=== PATIENT | female | born 1985 | race Caucasian/White ===

== ENCOUNTER 2018-08-14 17:34 | Emergency (ER) | payer SELFPAY ==
[2018-08-14 17:35] VITALS: BP 154/102; PULSE 88; RESP 16; TEMP 36.7; O2SAT 100; BMI 25.5
--- NOTE | 2018-08-14 17:40 | ED.RN ---
Pt brought in by Kalin viramontes from a counseling center for [facility]. in [facility]. Pt states she is from [place] and her friends dropped her off in [facility] and left her there to get help Pt was verbalizing wanting to hang herself so she was sent here for evaluation and placement. Pt very cooperative but states she has been having increasing SI for a year. Was started on Wellbutrin a week ago. Pt noted to be to be laughing very inappropriately. Suicide precautions initiated at this time. Sitter at bedside. Pt was placed in a gown, and blood and urine specimens obtained. Pt informed of mental health process, denies questions or needs.
--- NOTE | 2018-08-14 17:49 | ED.VIS.GEN ---
History of Present Illness Chief Complaint: Suicidal Detail of Chief Complaint: Sent to ER from counseling center because of specific plan Informant: Patient Onset: Month(s) - Patient states she has had thoughts of hanging herself daily for greater than a year. Context: Sudden Onset Timing: Intermittent - Depends if she is having a good day or not. Quality: Depression, anxiety, burden to others Location: Not applicable Current Severity: Mild Maximum Severity: Moderate Worsened by: Not having a good day or perceives she is a burden to others Relieved by: Nothing in particular Associated Symptoms: Anxiousness, romeo results of hanging herself. Last time past Tuesday.. Narrative: Patient is a 33-year-old [facility] woman who was brought from [place] to [place] by friends to undergo outpatient counseling. She states she relocated to [place] approximately 4 weeks ago. Patient states she thinks of hanging herself daily. 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 She has purchased all several times in 7 pain herself. She reports she has diagnosis of depression anxiety and mood disorder. She states he was not told she has a personality disorder. She is single. She lives alone until relocation. She denies smoking or drinking. She denies drug use. She states she is never been . Prior similar symptoms: Yes Recent Illness/Hospitalization: No - Past Medical History (1) History of depression and anxiety Status: Acute Past Medical History - Allergies and Home Meds Allergies/Adverse Reactions: Allergies Sulfa (Sulfonamide Antibiotics) Allergy (Verified 08/14/18 17:47) Vomiting Primary Care Physician: [facility] Doctor,Out of [NON-STAFF] - Prior records reviewed: No Past Medical History: - - Sy's disease Surgical History: no surgical history Lives: Alone Smoking Status: Never smoker Alcohol: None Drugs: None Review of Systems General: Denies: Chills, Fever, Malaise, Sweats, Weight loss Eyes: Denies: Visual changes - bilaterally, Blurred Vision - bilaterally, Diplopia ENT: Denies: Rhinorrhea, Sore throat Cardiovascular: Denies: Chest pain, Palpitations Respiratory: Denies: Dyspnea, Cough, Dyspnea on exertion Gastrointestinal: Denies: Abdominal pain, Nausea, Vomiting, Diarrhea, Melena, Hematochezia Genitourinary: Denies: Dysuria, Hematuria, Frequency Musculoskeletal: Denies: Back pain, Extremity Pain Skin: Denies: Rash, Wounds Neurological: Denies: Headache, Weakness, Numbness Psych: Reports: Depression, Anxiety, Suicidal thoughts Endocrine: Denies: Polyuria, Polydipsia, Heat intolerance, Cold intolerance Physical Exam Vital Signs/Narrative: Vital Signs Temp Pulse Resp BP Pulse Ox 08/14/18 17:35 98.1 F 88 16 154/102 H 100 Inital Vital Signs reviewed: Yes General: Well nourished, Well developed, No Acute Distress Head: Normocephalic, Atraumatic Eyes: Perrl, EOMI. Negative for: Pale conjunctiva, Scleral icterus, - ENT: Moist mucous membranes, No rhinorrhea, TM's clear Neck: Supple, Nontender, No lymphadenopathy, No JVD, - Cardiovascular: Regular rate, Regular rhythm, No murmurs, Normal S1, Normal S2 Respiratory: No distress, CTA bilaterally, Chest nontender Abdomen: Soft, Nontender, Nondistended, Normal bowel sounds, No masses Extremities: Nontender, No edema Skin: Normal color, No rash. Negative for: Cyanosis, Jaundice Neurological: Alert, Oriented x3, Cranial nerves II-XII grossly intact, Normal Strength, Normal Sensation, Normal DTR Psychological: Depressed - Patient voices thoughts of hanging herself. She states she has thoughts of hanging herself daily. She has never been hospitalized for psychiatric reasons. She has never attempted to harm herself. She states she has burned herself to release the tension and to prevent herself from hanging herself. Diagnostic/Tx/Re-eval - Medical Decision Making Since patient reports greater than 1 year of suicidal thoughts will have case management see patient and arrange for appropriate intense outpatient therapy. Because history of anemia CBC was obtained. Because history of thyroid disease at TSH level was obtained. Kayla from case management saw patient. She agreed not an easy case. She discussed case with lysis bilingual social worker from crisis center. She believes she needs to be hospitalized. Therefore, urine for drugs of abuse, alcohol level and test was added to prior orders. Melina from the counseling center saw patient. She is in agreement with me that patient does not require admission to hospital. When she contacted the facility she came from they refused to take her back. Will contact Kayla from case management to help with disposition of this patient. Patient charge from facility patient was transferred from requested that we keep patient overnight because she has instructed other residents how they can kill themselves. ostomy nurse was informed that she does not meet criteria for pink slip nor does she require emergent hospitalization. Plan is to transfer back to facility in the morning. ED Disposition - Plan for ED Patient: Disposition: Home or Assisted Living Diagnosis: Depression with suicidal ideation Instructions: ED Depression Referrals: [facility] Doctor,Out of [NON-STAFF] -
--- NOTE | 2018-08-14 17:54 | ED.DCSUM_ITS ---
History of Present Illness Chief Complaint: Suicidal Detail of Chief Complaint: Sent to ER from counseling center because of specific plan Informant: Patient Onset: Month(s) - Patient states she has had thoughts of hanging herself daily for greater than a year. Context: Sudden Onset Timing: Intermittent - Depends if she is having a good day or not. Quality: Depression, anxiety, burden to others Location: Not applicable Current Severity: Mild Maximum Severity: Moderate Worsened by: Not having a good day or perceives she is a burden to others Relieved by: Nothing in particular Associated Symptoms: Anxiousness, romeo results of hanging herself. Last time past Tuesday.. Narrative: Patient is a 33-year-old [facility] woman who was brought from [place] to [place] by friends to undergo outpatient counseling. She states she relocated to [place] approximately 4 weeks ago. Patient states she thinks of hanging herself daily. 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 She has purchased all several times in 7 pain herself. She reports she has diagnosis of depression anxiety and mood disorder. She states he was not told she has a personality disorder. She is single. She lives alone until relocation. She denies smoking or drinking. She denies drug use. She states she is never been . Prior similar symptoms: Yes Recent Illness/Hospitalization: No - Past Medical History (1) History of depression and anxiety Status: Acute Past Medical History - Allergies and Home Meds Allergies/Adverse Reactions: Allergies Sulfa (Sulfonamide Antibiotics) Allergy (Verified 08/14/18 17:47) Vomiting Primary Care Physician: [facility] Doctor,Out of [NON-STAFF] - Prior records reviewed: No Past Medical History: - - Sy's disease Surgical History: no surgical history Lives: Alone Smoking Status: Never smoker Alcohol: None Drugs: None Review of Systems General: Denies: Chills, Fever, Malaise, Sweats, Weight loss Eyes: Denies: Visual changes - bilaterally, Blurred Vision - bilaterally, Diplopia ENT: Denies: Rhinorrhea, Sore throat Cardiovascular: Denies: Chest pain, Palpitations Respiratory: Denies: Dyspnea, Cough, Dyspnea on exertion Gastrointestinal: Denies: Abdominal pain, Nausea, Vomiting, Diarrhea, Melena, Hematochezia Genitourinary: Denies: Dysuria, Hematuria, Frequency Musculoskeletal: Denies: Back pain, Extremity Pain Skin: Denies: Rash, Wounds Neurological: Denies: Headache, Weakness, Numbness Psych: Reports: Depression, Anxiety, Suicidal thoughts Endocrine: Denies: Polyuria, Polydipsia, Heat intolerance, Cold intolerance Physical Exam Vital Signs/Narrative: Vital Signs Temp Pulse Resp BP Pulse Ox 08/14/18 17:35 98.1 F 88 16 154/102 H 100 Inital Vital Signs reviewed: Yes General: Well nourished, Well developed, No Acute Distress Head: Normocephalic, Atraumatic Eyes: Perrl, EOMI. Negative for: Pale conjunctiva, Scleral icterus, - ENT: Moist mucous membranes, No rhinorrhea, TM's clear Neck: Supple, Nontender, No lymphadenopathy, No JVD, - Cardiovascular: Regular rate, Regular rhythm, No murmurs, Normal S1, Normal S2 Respiratory: No distress, CTA bilaterally, Chest nontender Abdomen: Soft, Nontender, Nondistended, Normal bowel sounds, No masses Extremities: Nontender, No edema Skin: Normal color, No rash. Negative for: Cyanosis, Jaundice Neurological: Alert, Oriented x3, Cranial nerves II-XII grossly intact, Normal Strength, Normal Sensation, Normal DTR Psychological: Depressed - Patient voices thoughts of hanging herself. She states she has thoughts of hanging herself daily. She has never been hospitalized for psychiatric reasons. She has never attempted to harm herself. She states she has burned herself to release the tension and to prevent herself from hanging herself. Diagnostic/Tx/Re-eval - Medical Decision Making Since patient reports greater than 1 year of suicidal thoughts will have case management see patient and arrange for appropriate intense outpatient therapy. Because history of anemia CBC was obtained. Because history of thyroid disease at TSH level was obtained. Kayla from case management saw patient. She agreed not an easy case. She discussed case with lysis high school social studies tutor from crisis center. She believes she ne eds to be hospitalized. Therefore, urine for drugs of abuse, alcohol level and test was added to prior orders. Melina from the counseling center saw patient. She is in agreement with me that patient does not require admission to hospital. When she contacted the facility she came from they refused to take her back. Will contact Kayla from case management to help with disposition of this patient. Patient charge from facility patient was transferred from requested that we keep patient overnight because she has instructed other residents how they can kill themselves. dumping machine operator was informed that she does not meet criteria for pink slip nor does she require emergent hospitalization. Plan is to transfer back to facility in the morning. ED Disposition - Plan for ED Patient: Disposition: Home or Assisted Living Diagnosis: Depression with suicidal ideation Instructions: ED Depression Referrals: Town Doctor,Out of [NON-STAFF] -
--- NOTE | 2018-08-14 17:54 | NURSING ---
GOLD, CRISIS, AWARE OF PATIENT IN ER
[2018-08-14 18:38] LABS: Absolute Lymphocyte Count 1.47 X10^3/ul (0.83-4.51); Absolute Neutrophil Count 7.2 X10^3/uL (2.0-7.7); Basophil# 0.03 X10^3/uL; Basophil% 0.3 % (0-1); Hematocrit 44.2 % (37-47); Hemoglobin 14.8 g/dl (12.0-15.0); Lymphocyte # 1.47 X10^3/ul (4.0); Lymphocyte % 15.9 % (19-41); Mean Corp Hgb Conc 33.5 g/gl (32-36); Mean Corpuscular Hgb 29.8 pg (27.0-32.0); Mean Corpuscular Volume 89.1 fL (81-99); Mean Platelet Vol. 9.6 fl (6.2-12.0); Monocyte% 5.4 % (0-10); Neutrophil # 7.19 X10^3/uL (2.7-7.7); Neutrophil % 78.1 % (47-70); POSITIVE COUNT NO; POSITIVE DIFFERENTIAL NO; POSITIVE MORPHOLOGY NO; Platelet Count 242 K/mm3 (150-450); RBC Distribution Width CV 12.9 % (11.6-14.6); Red Blood Count 4.96 M/mm3 (4.2-5.4); White Blood Count 9.2 K/mm3 (4.4-11.0)
--- NOTE | 2018-08-14 18:45 | CM.ED ---
SOCIAL WORK ASSESSMENT REASON FOR CONSULT: SI INFORMANT: DR. AMADOR; Austin GARCÍA, RN INFORMATION OBTAINED FROM: PT WHO PRESENTS WITH LABILE AFFECT EVIDENCED BY INAPPROPRIATE LAUGHTER AT TIMES AND TEARFULNESS AT OTHERS. WIDE SPECTRUM OF EMOTION DISPLAYED THROUGHOUT 45 MINUTES CONSULT. PT DOES NOT MAINTAIN EYE CONTACT, BUT PARTICIPATES IN CONVERSATION AND IS ABLE TO PROVIDE RESPONSES TO INQUIRIES. LIVING ARRANGEMENTS: PT IS ORIGINALLY FROM [place]. SHE WAS BROUGHT HERE BY A GROUP OF FRIENDS TO RECEIVE TREATMENT AT [facility]. SHE PRESENTLY RESIDES IN A SHARED ROOM AT THEIR HOUSING AND PARTICIPATES IN IOP TREATMENT M-F AT [facility] IN GROUP THERAPY AND ADDITIONALLY MEETS WITH HER INDIVIDUAL COUNSELOR, KOLBY, 2X/WEEK. EMPLOYMENT: PT IS NOT EMPLOYED AND HER TREATMENT IS BEING PAID FOR BY THE RELIGION. SHE EXPRESSES STRESS CONCERNING HOW MUCH THIS MUST BE COSTING THE RELIGION AT HER EXPENSE. SUPPORT PROVIDED. SUPPORTS: REPORTS GOOD SUPPORTS AMONG FAMILY AND FRIENDS BACK HOME, BUT EXPRESSES SIGNIFICANT STRESS SINCE MOVING HERE AND BEING REMOVED FROM THEM. STRESSORS: ISOLATION FROM FAMILY AND FRIENDS IN [place]. ALSO STATES THAT SHE WAS PLACED ON MEDICATION LAST WEEK AND DOES NOT FEEL THAT IT IS WORKING YET AND ALSO STATES, I WOULD RATHER BE THAN ON MEDICATION. PROTECTIVE FACTORS: SHANA (FEAR OF GOING TO HELL). 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 MENTAL HEALTH HX: PT REPORTS HX OF DEPRESSION AND ANXIETY. STATES THAT THEY HAD MENTIONED A MOOD DO NOS, BUT HAS NOT RECEIVED THIS DIAGNOSIS YET. PT WAS STARTED ON WELLBUTRIN ON TUESDAY OF LAST WEEK AND REPORTS THAT SHE WAS FEELING DIZZY. SHE DISCUSSED SIDE EFFECTS WITH HER PSYCHIATRIST TODAY, ALONG WITH HOW SHE WAS FEELING EMOTIONALLY AND WAS SENT TO THE ED FOLLOWING THAT CONVERSATION. PT STATES THAT SHE DOES WISH SHE WAS NOT HERE PRESENTLY. DENIES HAVING A PLAN OR INTENT WHILE IN THE HOSPITAL, BUT STATES SHE HAS THOUGHT OF WAYS TO HARM HERSELF WHERE SHE IS RESIDING. STATES THAT SHE HAS WANTED TO HANG HERSELF AND TURNED IN ALL OF HER BELTS LAST WEEK TO STAFF. STATES THAT SINCE DOING THAT SHE HAS NOTICED CORDS AROUND THE HOME THAT SHE COULD USE ATTACHED TO THE SEWING MACHINE OR IRON. SHE REPORTS AN ATTEMPT ABOUT 1.5 YEARS AGO WHERE SHE TOOK A HANDFUL OF PAIN MEDICATIONS. STATES THAT SHE KNEW THEY WOULDN'T KILL ME, BUT I DIDN'T CARE IF THEY DID EITHER. SHE REPORTS THAT WANTING TO HARM HERSELF HAS BEEN INTERRUPTED BY THE BELIEF THAT SHE WILL GO TO HELL, AND IT IS HOT. SHE LEYVA HERSELF AND REPORTS THAT THIS USUALLY HELPS DISTRACT HER. CLAIMS THAT SHE DOES NOT HAVE ACCESS TO BURN HERSELF MUCH SHE DID AT HOME THE IRON IS LOCKED UP AT HER CURRENT RESIDENCE. SHE LAST BURNED HERSELF WITH THE IRON ON TUESDAY WHILE SHE WAS IRONING HER DRESS. CONCERN WITH HER NOT BEING ABLE TO ACCESS THIS COPING MECHANISM AND THE INCREASE IN LIKELIHOOD UPON ACTING ON SUICIDAL IDEATIONS. SUBSTANCE ABUSE HX: PT DENIES SUBSTANCE USE HX ASSESSMENT: PT IS ARTICULATE IN ANSWERING INQUIRIES, BUT DOES NOT MAKE EYE CONTACT AND HAS A LABILE AFFECT. PT IS ALERT AND ORIENTED AND ABLE TO PARTICIPATE IN ASSESSMENT. DOES CONFIRM SI, BUT NO HI OR AUDIBLE/VISUAL HALLUCINATIONS. PT DOES IDENTIFY A PLAN AND THE MEANS TO COMPLETE THE PLAN. THIS COMBINED WITH HER RISK FACTORS AND INABILITY TO PARTAKE IN HER NORMAL COPING MECHANISM OF BURNING INCREASE LETHALITY OF SUICIDE RISK. DISCUSSED WITH CRISIS WHO WILL EVALUATE THEY FEEL PT MAY MEET CRITERIA FOR INPATIENT PSYCHIATRIC HOSPITALIZATION WELL. UPDATED PHYSICIAN AND NURSING. SITTER TO REMAIN IN ROOM. INTERVENTION(S): C-SSRS COMPLETED. DISCUSSED WITH CRISIS WHO WILL EVALUATE FOR INPATIENT PSYCHIATRIC HOSPITALIZATION. UPDATED PHYSICIAN AND NURSING. PLAN: CRISIS TO EVALUATE FOR PSYCHIATRIC TREATMENT. ANGELES Jarquin, MARY
[2018-08-14 18:54] LABS: Anion Gap 6 (5-15); BUN 8 mg/dL (7-18); BUN/Creat Ratio 9.5 RATIO (10-20); Chloride 106 mmol/L (98-107); Creatinine, Serum 0.84 mg/dL (0.55-1.02); EST Glomerular Filtration Rate 83 mL/min (>60); Est Glom Filt Rate - Afr Amer 101 mL/min (>60); Estimated Creatinine Clearance 85.72 ml/min; Glucose 100 mg/dL (74-106); Potassium 3.3 mmol/L (3.5-5.1); Sodium Level 140 mmol/L (136-145); Thyroid Stim Hormone (TSH) 1.78 uIU/mL (0.358-3.74)
[2018-08-14 19:35] VITALS: RESP 16
[2018-08-14 19:38] LABS: Amphetamine Urine VISTA NEGATIVE (<1000 ng/mL); Barbiturate Urine VISTA NEGATIVE (< 200 ng/mL); Benzodiazepine Urine VISTA NEGATIVE (< 200 ng/mL); Cocaine Urine VISTA NEGATIVE (< 300 ng/mL); Ecstacy Urine VISTA NEGATIVE (< 500 ng/mL); Methadone Urine VISTA NEGATIVE (< 300 ng/mL); PCP Urine VISTA NEGATIVE (< 25 ng/mL); THC Urine VISTA NEGATIVE (< 50 ng/mL); Vista UDS pH Range 6
--- NOTE | 2018-08-14 20:46 | ED.RN ---
SITTER DISCONTINUED. PATIENT COOPERATIVE. RESTING IN BED.
[2018-08-14 21:02] VITALS: RESP 16
[2018-08-14 22:38] LABS: Pregnancy, Serum, hCG Quali. NEGATIVE Negative (0-9 Nonpreg)
[2018-08-14 22:44] VITALS: BP 133/88; PULSE 85; RESP 16; O2SAT 97
[2018-08-14 23:38] VITALS: RESP 16
[2018-08-15] VITALS (12 sets, daily range): BP systolic 126–138; BP diastolic 90–101; PULSE 86–109; RESP 16–18; O2SAT 97–100
--- NOTE | 2018-08-15 06:36 | ED.RN ---
IRIS FROM [facility] INFORMED THIS NURSE THAT THE PSYCHIATRIC TEAM AT THE FACILITY WOULD MEET THIS MORNING TO DETERMINE WHAT THEY WANT TO DO WITH THE PT. THIS NURSE INFORMED IRIS THAT THE PT WAS SEEN BY THE COUNSELING CENTER AND WAS CLEARED. THE PT IS READY FOR DISCHARGE AND THE ER ALLOWED THE PT TO STAY ALL NIGHT SO THE PEPPER CUTTER DID NOT HAVE TO GET UP TO COME GET THE PT. WE WERE INFORMED THE PEPPER CUTTER WOULD COME IN THE MORNING TO GET THE PT. IRIS REPEATED THAT THEY WOULD DETERMINE THEIR PLAN. WHEN ASKED WHAT THE COURSE OF ACTION WOULD BE IF THE PSYCHIATRIC TEAM DECIDED NOT TO TAKE THE PT BACK. HE SAID THEY WOULD NEED TO GET HER ADMITTED TO [facility]. THIS INFORMATION WAS PASSED TO HALLE FROM THE COUNSELING CENTER
[2018-08-15] MEDS: buPROPion (SR) 150 MG Tablet.SA PO (07:58)
--- NOTE | 2018-08-15 11:25 | ED.RN ---
IRIS PRICE CALLED [facility] THIS AM AND TOLD HER THAT THEY WERE NOT TAKING THE PT BACK UNTIL AFTER THEIR MEETING AT THE FACILITY. HALLE FROM [facility] IS AWARE AND IS TRYING TO CONTACT THE FACILITY AND THE DR AT THE COUNSELING CENTER
--- NOTE | 2018-08-15 17:23 | ED.RN ---
PER DR NO PT WROTE A SUICIDE NOTE AND TOLD THE COMPENSATION CONSULTANT THAT SHE WAS SUICIDAL AND TOLD THE OTHER RESIDENTS THAT SHE WAS SUICIDAL. PT IS DENYING ALL OF THIS. PER PT IS NOT ALLOWED TO GO BACK TO ASSISTED
--- NOTE | 2018-08-15 23:55 | EKG12_ITS ---
Test Reason : MENTAL HEALTH Blood Pressure : / mmHG Vent. Rate : 093 BPM Atrial Rate : 093 BPM P-R Int : 188 ms QRS Dur : 096 ms QT Int : 348 ms P-R-T Axes : 066 055 -32 degrees QTc Int : 432 ms Normal sinus rhythm T wave abnormality, consider inferior ischemia Abnormal ECG Confirmed by ABIEL CEVALLOS, PAULA ([id number]), tape editor RAYMOND ZARATE ([id number]) on 08/21/2018 4:25:10 PM Referred By: PERRY Confirmed By:PAULA BEEBE MD
[2018-08-16] VITALS (10 sets, daily range): BP systolic 124–155; BP diastolic 75–98; PULSE 62–113; RESP 15–18; TEMP 36.8; O2SAT 97–100
[2018-08-16 00:33] LABS: AST(SGOT) 10 U/L (15-37); Alanine Aminotransfer ALT/SGPT 13 U/L (13-56); Albumin, Serum 3.8 g/dL (3.2-5.0); Alkaline Phosphatase 48 U/L (45-117); Bilirubin, Direct 0.17 mg/dL (0.00-0.30); Globulin 3.6 g/dL (2.2-4.2); Protein, Total 7.4 g/dL (6.4-8.2)
[2018-08-16] MEDS: buPROPion (SR) 150 MG Tablet.SA PO (10:57)
== END 2018-08-16 13:48 ==
PROVIDERS: Emergency Medicine; Emergency Provider Emergency Medicine; Family Provider Family Medicine; PCP Family Medicine
DX: F32.9 Major depressive disorder, single episode, unspecified (principal); R45.851 Suicidal ideations; F41.9 Anxiety disorder, unspecified; Z79.899 Other long term (current) drug therapy; E06.3 Autoimmune thyroiditis
CPT/HCPCS: 80048; 80076; 80307; 80320; 84443; 84703; 85025; 93005; 99285; A4216; G0480